=== PATIENT | female | born 1985 | race Caucasian/White ===

== ENCOUNTER 2016-08-28 07:06 | Emergency (ER) | payer OTHER ==
[2016-08-28 07:21] VITALS: BP 104/71
[2016-08-28] MEDS ORDERED: LIDOCAINE-EPINEPH-TETRACAINE 3 ML SYRINGE TOP ONE (07:32)
--- NOTE | 2016-08-28 07:57 | ED Physician Documentation ---
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: Ovarian cysts Psych: Anxiety - Past Surgical History Past Surgical History: Yes /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: section, Other - Present Medications Home Medications: Ambulatory Orders Medication Instructions Recorded Confirmed Levonorgestrel [Mirena] 1 each IY 11/25/12 11/25/12 oxyCODONE/ACET 5/325 [Percocet 5 1 - 2 each PO Q4-6H PRN #14 tablet 11/25/12 mg/325 mg] - Allergies Allergies/Adverse Reactions: Allergies Allergy/AdvReac Type Severity Reaction Status Date / Time acetaminophen [From Vicodin] Allergy Mild Itching Verified 08/28/16 07:21 hydrocodone bitartrate * Allergy Mild Itching Verified 08/28/16 07:21 [From Vicodin] diphenhydramine HCl * AdvReac Severe Hallucinati Verified 08/28/16 07:21 [From Benadryl] ons - Social History Does the pt smoke?: No Smoking Status: Never smoker Does the pt drink ETOH?: Yes Does the pt have substance abuse?: No - Immunizations Immunizations are current?: No - POLST Patient has POLST: No PD ED PE NORMAL - Vitals Vital signs reviewed: Yes - Extremities Extremities: Other (R foot small area avulsed tissue tip 3rd toe, approx 1.5 cm lac base medial 4th toe, able to palpate and vis to basse under bright light and no glass seen or palpated, MSV intact) Results - Vitals Vitals: Vital Signs - 24 hr 08/28/16 07:17 Temperature 36.5 C Heart Rate 92 Respiratory 18 Rate Blood Pressure 104/71 O2 Saturation 100 Oxygen O2 Source Room air PD MEDICAL DECISION MAKING - ED course ED course: lac irrigated, then let to base of toe to stop bleeding then repaired with dermabond s complications, pt tolerated well, simple 1.5 cm Departure - Departure Disposition: 01 Home, Self Care Clinical Impression: Laceration Condition: Good Instructions: ED Laceration Foot Follow-Up: Cheyanne Gomez DO [Primary Care Provider] - Comments: The dermabond will gradually flake off over about 10 days. May shower as usual. Do not apply lotion or ointment to the site as that will dissolve the dermabond For the open wound to the tip of the toe, just keep it clean and apply antibiotic ointment aand a clean bandaid daily until healed. If there is any further bleeding today stop back by the ER and we can redress the wound.
== END 2016-08-28 08:06 | disposition home or self-care (01) ==
LOC: ED 07:06
DX: S91.311A Laceration without foreign body, right foot, initial encounter (principal); W25.XXXA Contact with sharp glass, initial encounter
CPT/HCPCS: 12001; 99282; 99283

== ENCOUNTER 2016-10-17 22:22 | Outpatient (CLI) | payer SELFPAY | END 2016-10-17 22:23 | disposition home or self-care (01) | LOC: LAB.R 22:22 | PROVIDERS: ATTEND Family Medicine | DX: N39.0 Urinary tract infection, site not specified (principal) | CPT/HCPCS: 87086 ==

== ENCOUNTER → 2016-10-24 | Outpatient (CLI) | payer OTHER ==
[2016-10-25 11:52] LABS: TEST RESULT REPORT (())
[2016-11-07 11:14] LABS: HSV 1 IGG INDEX <0.90 INDEX; HSV 2 IGG INDEX <0.90 INDEX
== END ==
LOC: LAB.WCP 13:50
PROVIDERS: ATTEND Family Medicine
DX: Z20.2 Contact with and (suspected) exposure to infections with a predominantly sexual mode of transmission (principal)
CPT/HCPCS: 36415; 81599; 86592; 86694; 86695; 86696; 87389